=== PATIENT | female | born 1995 | race African-American/Black ===

== ENCOUNTER 2017-05-06 01:43 | Emergency (ER) | payer BC ==
[~2017-05-06] VITALS: Ht 167.6 cm; Wt 68.2 kg
[2017-05-06 01:51] VITALS: TEMP 99.1
[2017-05-06] MEDS ORDERED: FOLIC ACID 11 MG/TA1 PO (01:57)
[2017-05-06] MEDS ORDERED: PERCOCET 325 MG1 TA2 PO ×2 (01:58→03:54)
[2017-05-06 02:49] LABS: BASO # 0.1 (0.0-0.2); BASO % 0.6 % (0.0-2.0); EOS # 0.1 (0.0-0.7); EOS % 0.7 % (0-4.0); GRAN # 9.1 (1.4-6.5); LYMPH # 2.5 (1.2-3.4); LYMPH % 18.4 % (20.0-51.0); MEAN CELL VOLUME 99 fl (80.0-95.0); MEAN CORPUSCULAR HGB CONC 36 g/dl (33.0-37.0); MEAN PLATELET VOLUME 10.2 fl (7.4-10.4); MONO # 1.8 (0.1-0.6); MONO % 12.8 % (1.7-9.3); PLATELET COUNT 465 K/mm3 (130-400); RED BLOOD COUNT 2.12 M/mm3 (4.10-5.30); RETIC % 20.2 % (0.5-3.52); WHITE BLOOD COUNT 13.6 K/mm3 (4.8-10.8)
[2017-05-06 02:52] LABS: HEMOGLOBIN 7.6 g/dl (12.0-15.0); MEAN CORPUSCULAR HEMOGLOBIN 36 pg (26.0-32.0)
[2017-05-06 03:07] LABS: ADJUSTED CALCIUM 9.1 mg/dL (8.4-10.2); ALANINE AMINOTRANSFERASE 35 U/L (9-52); ALBUMIN 4.3 gm/dL (3.5-5.0); ALKALINE PHOSPHATASE 56 U/L (50-136); ANION GAP 10 mmol/L (7-16); BILIRUBIN,TOTAL 5.8 mg/dL (0.0-1.0); BLOOD UREA NITROGEN 5 mg/dL (7-17); CALCIUM 9.3 mg/dL (8.4-10.2); CARBON DIOXIDE 24 mmol/L (22-30); CHLORIDE 105 mmol/L (98-107); CREATININE, serum 0.69 mg/dL (0.52-1.25); GLUCOSE 93 mg/dL (74-106); POTASSIUM 3.9 mmol/L (3.4-5.0); SODIUM 139 mmol/L (137-145); TOTAL PROTEIN 7.2 gm/dL (6.4-8.2)
[2017-05-06 03:09] LABS: C-REACTIVE PROTEIN < 0.5 mg/dL (0.0-0.9)
[2017-05-06 03:34] LABS: COLLECTION METHOD CLEAN CATCH
[2017-05-06 03:39] LABS: PH 7 (5-8); SQUAMOUS EPITHELIAL 0-2 /hpf; URINE APPEARANCE Clear; URINE BACTERIA Rare /hpf; URINE BILIRUBIN Negative (NEGATIVE); URINE BLOOD Negative (NEGATIVE); URINE COLOR Yellow; URINE GLUCOSE Negative (NEGATIVE); URINE KETONE Negative (NEGATIVE); URINE LEUKOCYTE ESTERASE Negative (NEGATIVE); URINE PROTEIN(semi-quant) Negative (NEGATIVE); URINE RBC None Seen /hpf; URINE WBC 0-2 /hpf
[2017-05-06 04:32] VITALS: BP 124/82; PULSE 78
== END 2017-05-06 04:44 | disposition home or self-care (01) ==
LOC: COL.ER 01:43
PROVIDERS: Emergency Medicine
DX: D57.00 Hb-SS disease with crisis, unspecified (principal)
CPT/HCPCS: J1170; J2405; J7030